=== PATIENT | female | born 1965 | race Caucasian/White ===

== ENCOUNTER 2016-10-20 15:25 | Emergency (ER) | payer MEDICAID ==
[~2016-10-20] VITALS: Ht 175.3 cm; Wt 62.1 kg
[~2016-10-20 15:25] MED LIST: ALENDRONATE; ALPR1TAB2; HYDR473S51; OXYCODONE; SIMV20TA; TRAZADONE
[2016-10-20 15:27] VITALS: BP 116/68
== END 2016-10-20 16:22 | disposition home or self-care (01) ==
LOC: ED 15:55
DX: S29.012A Strain of muscle and tendon of back wall of thorax, initial encounter (principal); G89.11 Acute pain due to trauma; M54.9 Dorsalgia, unspecified; J44.9 Chronic obstructive pulmonary disease, unspecified; R21 Rash and other nonspecific skin eruption; F17.200 Nicotine dependence, unspecified, uncomplicated; G89.29 Other chronic pain; M54.30 Sciatica, unspecified side; X50.9XXA Other and unspecified overexertion or strenuous movements or postures, initial encounter; Y93.89 Activity, other specified; Y92.89 Other specified places as the place of occurrence of the external cause; Y99.8 Other external cause status; Z88.6 Allergy status to analgesic agent
CPT/HCPCS: 99281

== ENCOUNTER 2017-07-06 14:43 | Emergency (ER) | payer MEDICAID ==
[~2017-07-06] VITALS: Ht 175.3 cm; Wt 59.7 kg
[2017-07-06 14:49] VITALS: BP 129/83
[2017-07-06] MEDS ORDERED: KETOROLAC 30 MG/1 ML IM ONE (15:30)
[2017-07-06] MEDS ORDERED: KETOROLAC 30 MG/1 ML ONE (15:46)
== END 2017-07-06 16:22 | disposition home or self-care (01) ==
LOC: ED 16:00
DX: J20.9 Acute bronchitis, unspecified (principal); J44.0 Chronic obstructive pulmonary disease with (acute) lower respiratory infection
CPT/HCPCS: 71046; 93005; 96372; 99284; J1885

== ENCOUNTER 2018-05-23 15:16 | Emergency (ER) | payer MEDICAID ==
[~2018-05-23] VITALS: Ht 175.3 cm; Wt 58.8 kg
[2018-05-23 15:28] VITALS: BP 142/86
== END 2018-05-23 16:51 | disposition home or self-care (01) ==
LOC: ED 16:45
DX: H10.022 Other mucopurulent conjunctivitis, left eye (principal); J34.9 Unspecified disorder of nose and nasal sinuses; G89.29 Other chronic pain; J43.9 Emphysema, unspecified; Z90.49 Acquired absence of other specified parts of digestive tract; Z90.710 Acquired absence of both cervix and uterus
CPT/HCPCS: 99283

== ENCOUNTER 2018-06-09 11:42 | Emergency (ER) | payer SELFPAY ==
[~2018-06-09] VITALS: Ht 175.3 cm; Wt 56.2 kg
[2018-06-09] MEDS ORDERED: ATOR40TA78 PO (12:13)
[2018-06-09] MEDS ORDERED: OXYC-302 PO (12:13)
[2018-06-09] MEDS ORDERED: ASPI-515 PO (12:13)
[2018-06-09 13:35] VITALS: BP 116/72
== END 2018-06-09 14:02 | disposition home or self-care (01) ==
LOC: ED 12:11
DX: J06.9 Acute upper respiratory infection, unspecified (principal); J44.9 Chronic obstructive pulmonary disease, unspecified; Z88.6 Allergy status to analgesic agent
CPT/HCPCS: 71046; 87081; 87880; 99284

== ENCOUNTER 2018-06-19 11:13 | Emergency (ER) | payer MEDICAID, OTHER ==
[~2018-06-19] VITALS: Ht 175.3 cm; Wt 54.8 kg
[~2018-06-19 11:13] MED LIST changes: +ASPI-515 PO; +ATOR40TA78 PO; +OXYC-302 PO
[2018-06-19 12:34] LABS: ALANINE AMINOTRANSFERASE 13 U/L (12-78); ANION GAP 9 mmol/L (5-15); CALCIUM 9.2 mg/dL (8.5-10.1); CHLORIDE 109 mmol/L (98-107)
[2018-06-19 12:36] LABS: ALKALINE PHOSPHATASE 109 U/L (45-117); BASOPHILS # (AUTO) 0.13 x10^3/uL (0-0.1); BASOPHILS % (AUTO) 1 % (0-1); BILIRUBIN,TOTAL 0.5 mg/dL (0.2-1.0); EOSINOPHILS # (AUTO) 0.21 x10^3/uL (0-0.4); EOSINOPHILS % (AUTO) 2 % (1-7); LYMPHOCYTES # (AUTO) 2.79 x10^3/uL (1-3.4); LYMPHOCYTES % (AUTO) 22 % (22-44); MD NO; MEAN CORPUSCULAR HEMOGLOBIN 30.8 pg (27.0-34.8); MEAN CORPUSCULAR HGB CONC 33.5 g/dL (32.4-35.8); MEAN PLATELET VOLUME 8.9 fL (7.4-10.4); MONOCYTES # (AUTO) 1.06 x10^3/uL (0.2-0.8); MONOCYTES % (AUTO) 8 % (2-9); NEUTROPHILS % (AUTO) 67 % (42-75); PLATELET COUNT 342 x10^3/uL (130-400); RED BLOOD COUNT 4.39 x10^6/uL (3.82-5.3); RED CELL DISTRIBUTION WIDTH 13.5 % (9.6-15.2); TOTAL PROTEIN 7.9 g/dL (6.4-8.2)
[2018-06-19] MEDS ORDERED: KETOROLAC 30 MG/1 ML ONE (13:28)
[2018-06-19] MEDS ORDERED: KETOROLAC 60 MG/2 ML IM ONE (13:30)
[2018-06-19 14:28] LABS: MICROSCOPIC NOT IND
[2018-06-19 14:30] LABS: CULTURE INDICATED? NO
[2018-06-19 15:10] VITALS: BP 107/50
== END 2018-06-19 16:06 | disposition home or self-care (01) ==
LOC: ED 15:30
DX: M54.42 Lumbago with sciatica, left side (principal); M54.16 Radiculopathy, lumbar region; J43.9 Emphysema, unspecified
CPT/HCPCS: 36415; 74021; 76700; 80053; 81003; 83690; 85025; 96372; 99284; J1885

== ENCOUNTER 2021-02-06 15:49 | Outpatient (CLI) | payer MEDICAID ==
[~2021-02-06 15:49] MED LIST changes: -ASPI-515 PO; +ASPI-963 PO; -OXYC-302 PO; +OXYC1TAB14 PO
[2021-02-06] MEDS ORDERED: OMNIPAQUE 350 MG/ML, 75ML BOTTLE ONE (17:33)
== END 2021-02-06 23:59 | disposition home or self-care (01) ==
LOC: RAD 15:49
PROVIDERS: ATTEND Physician Assistant
DX: J06.9 Acute upper respiratory infection, unspecified (principal); I70.0 Atherosclerosis of aorta; I71.4 Abdominal aortic aneurysm, without rupture
CPT/HCPCS: 71260; Q9967